=== PATIENT | female | born 1975 | race Hispanic/Latino ===

== ENCOUNTER 2020-07-28 07:05 | Day surgery (SDC) | payer BC ==
[2020-07-28] VITALS (7 sets, daily range): BP systolic 76–103; BP diastolic 42–71
[~2020-07-28] VITALS: Ht 144.8 cm; Wt 65.8 kg
[2020-07-28] MEDS ORDERED: ATOR40TA71 PO (08:23)
[2020-07-28] MEDS ORDERED: SODIUM CHLORIDE 0.9% 1000ML 1,000 ML IV ONE (09:45)
[2020-07-28] MEDS ORDERED: PROPOFOL 10 MG/ML 20ML VIAL IV ONE (09:51)
[2020-07-28] MEDS ORDERED: FENTANYL CITRATE PF 50 MCG/1 ML 2ML VIAL ONE (09:52)
== END 2020-07-28 10:40 | disposition home or self-care (01) ==
LOC: ENDO 07:05 → DAH 07:05 → ENDO 10:40
PROVIDERS: ATTEND Internal Medicine Gastroenterology
DX: R79.9 Abnormal finding of blood chemistry, unspecified (principal); Z20.828 Contact with and (suspected) exposure to other viral communicable diseases; E78.5 Hyperlipidemia, unspecified; Z98.51 Tubal ligation status; Z79.899 Other long term (current) drug therapy; Z90.49 Acquired absence of other specified parts of digestive tract
CPT/HCPCS: 43237; 87426; A4215; A4221; A4222; A4223; A4606; A4620; A4663; J2704; J3010; J7030; U0003